=== PATIENT | female | born 1995 | race African-American/Black ===

== ENCOUNTER 2017-03-10 17:53 | Emergency (ER) | payer MEDICAID ==
[~2017-03-10] VITALS: Ht 157.5 cm; Wt 107.5 kg
[2017-03-10 18:30] VITALS: BP 124/85
[2017-03-10 19:27] LABS: ASPARTATE AMINO TRANSFERASE 27 U/L (15-37); BLOOD UREA NITROGEN 14 mg/dL (7-18)
[2017-03-10 20:11] LABS: PATH.CAST-FLAG NOT PRESENT; SPERM-FLAG NOT PRESENT; SRC-FLAG NOT PRESENT; XTAL-FLAG NOT PRESENT; YLC-FLAG NOT PRESENT
== END 2017-03-10 21:41 | disposition home or self-care (01) ==
LOC: ED 21:35
DX: N30.01 Acute cystitis with hematuria (principal); J02.8 Acute pharyngitis due to other specified organisms; N92.0 Excessive and frequent menstruation with regular cycle
CPT/HCPCS: 36415; 71020; 80053; 81001; 83690; 84703; 85025; 87086; 93005; 99285

== ENCOUNTER 2017-04-11 15:49 | Emergency (ER) | payer SELFPAY ==
[~2017-04-11] VITALS: Ht 157.5 cm; Wt 107.5 kg
[2017-04-11 15:50] VITALS: BP 142/90
[2017-04-11] MEDS ORDERED: KETOROLAC 30 MG/1 ML IM ONE (16:00)
[2017-04-11] MEDS ORDERED: KETOROLAC 30 MG/1 ML ONE (16:06)
[2017-04-11] MEDS ORDERED: METHOCARBAMOL 750 MG TABLET ONE (16:10)
[2017-04-11] MEDS ORDERED: METHOCARBAMOL 750 MG TABLET PO ONE (16:30)
[2017-04-11] MEDS ORDERED: MELO-190 PO (17:24)
== END 2017-04-11 17:32 | disposition home or self-care (01) ==
LOC: ED 17:00
DX: M54.16 Radiculopathy, lumbar region (principal); F17.200 Nicotine dependence, unspecified, uncomplicated
CPT/HCPCS: 72110; 73502; 96372; 99284; J1885

== ENCOUNTER 2017-05-05 14:59 | Emergency (ER) | payer MEDICAID ==
[~2017-05-05] VITALS: Ht 157.5 cm; Wt 100.0 kg
[~2017-05-05 14:59] MED LIST: MELO-190 PO
[2017-05-05 15:13] VITALS: BP 131/75
[2017-05-05] MEDS ORDERED: METHOCARBAMOL 750 MG TABLET PO ONE (15:30)
[2017-05-05] MEDS ORDERED: KETOROLAC 30 MG/1 ML IM ONE ×2 (15:30)
== END 2017-05-05 16:28 | disposition home or self-care (01) ==
LOC: ED 16:20
DX: M54.31 Sciatica, right side (principal); K59.00 Constipation, unspecified
CPT/HCPCS: 74020; 96372; 99284; J1885

== ENCOUNTER 2017-08-07 19:40 | Emergency (ER) | payer MEDICAID ==
[~2017-08-07] VITALS: Ht 162.6 cm; Wt 107.6 kg
[~2017-08-07 19:40] MED LIST changes: -MELO-190 PO; +MELO7.5T31 PO
[2017-08-07 21:06] LABS: HEMATOCRIT 37.1 % (34.6-47.8); HEMOGLOBIN 12.3 g/dL (11.7-16.4); WHITE BLOOD COUNT 8.9 x10^3/uL (3.4-10)
[2017-08-07 21:18] LABS: ASPARTATE AMINO TRANSFERASE 9 U/L (15-37); BLOOD UREA NITROGEN 12 mg/dL (7-18)
[2017-08-07 22:35] VITALS: BP 121/75
[2017-08-08] MEDS ORDERED: IBUP1TAB5 PO (23:35)
[2017-08-08] MEDS ORDERED: OXYC-302 PO (23:37)
[2017-08-08] MEDS ORDERED: DOCU-131 PO (23:37)
== END 2017-08-07 22:37 | disposition home or self-care (01) ==
LOC: ED 21:25
DX: O20.0 Threatened abortion (principal); M54.5 Low back pain; Z3A.01 Less than 8 weeks gestation of pregnancy; Z90.49 Acquired absence of other specified parts of digestive tract
CPT/HCPCS: 36415; 76856; 80053; 81003; 84702; 85025; 86901; 99285

== ENCOUNTER 2017-08-08 15:16 | Observation (INO) | payer MEDICAID ==
[~2017-08-08] VITALS: Ht 157.5 cm; Wt 106.1 kg
[2017-08-08] MEDS ORDERED: HYDROmorphone 1 MG/ML, 1ML ONE ×2 (15:56→16:40)
[2017-08-08] MEDS ORDERED: ONDANSETRON 2MG/ML, 2ML ONE ×3 (15:56→19:52)
[2017-08-08] MEDS ORDERED: SODIUM CHLORIDE 0.9% 1,000ML IVBOLUS ONE (16:00)
[2017-08-08] MEDS ORDERED: SODIUM CHLORIDE FLUSH 10ML SYR IVF ONE (16:00)
[2017-08-08] MEDS ORDERED: ONDANSETRON 2MG/ML, 2ML IVPush ONE (16:00)
[2017-08-08 16:01] LABS: HEMATOCRIT 41.9 % (34.6-47.8); HEMOGLOBIN 13.8 g/dL (11.7-16.4); WHITE BLOOD COUNT 9.3 x10^3/uL (3.4-10)
[2017-08-08] MEDS: HYDROmorphone 1 MG/ML, 1ML IVPush PRN ×2 (16:02→16:43)
[2017-08-08] MEDS ORDERED: DIPHENHYDRAMINE 50 MG/ML, 1ML ONE (17:07)
[2017-08-08] MEDS ORDERED: morphine SULFATE 10 MG/ML, 1ML ONE (17:10)
[2017-08-08] MEDS ORDERED: DIPHENHYDRAMINE 50 MG/ML, 1ML IVPush ONE (17:30)
[2017-08-08] MEDS ORDERED: FENTANYL PF 100 MCG/2ML IV ONE (19:00)
[2017-08-08] MEDS ORDERED: FENTANYL PF 100 MCG/2ML ONE ×5 (19:09→22:05)
[2017-08-08] MEDS: LACTATED RINGERS 1,000 ML IV SCH ×2 (19:19→23:50)
[2017-08-08] MEDS ORDERED: MIDAZOLAM 1 MG/ML, 2ML ONE ×2 (19:49→22:32)
[2017-08-08] MEDS ORDERED: GLYCOPYRROLATE 0.2MG/1ML, 5ML ONE (19:52)
[2017-08-08] MEDS ORDERED: PROPOFOL 10 MG/ML, 20ML ONE (19:52)
[2017-08-08] MEDS ORDERED: NEOSTIGMINE 1 MG/ML, 10ML ONE (19:52)
[2017-08-08] MEDS ORDERED: SUCCINYLCHOLINE 20 MG/ML, 10ML ONE (19:52)
[2017-08-08] MEDS ORDERED: DEXAMETHASONE 4 MG/ML, 1ML ONE (19:52)
[2017-08-08] MEDS ORDERED: CEFAZOLIN 1,000 MG ONE (19:52)
[2017-08-08] MEDS ORDERED: LIDOCAINE GEL 2%, 5ML ONE (19:53)
[2017-08-08] MEDS ORDERED: LIDOCAINE-MPF 2% ,5ML ONE ×2 (19:53→21:11)
[2017-08-08] MEDS ORDERED: EPINEPHRINE 1 MG/ML, 1ML ONE (19:57)
[2017-08-08] MEDS ORDERED: BUPIVACAINE/PF 0.25% ONE (19:57)
[2017-08-08] MEDS ORDERED: SILVER NITRATE STICK TP ONE ×2 (19:57→21:51)
[2017-08-08] MEDS ORDERED: MIDAZOLAM 1 MG/ML, 2ML IV PRN (20:00)
[2017-08-08] MEDS ORDERED: hydrALAzine 20 MG/ML, 1ML IV PRN (20:00)
[2017-08-08] MEDS ORDERED: HYDROmorphone 1 MG/ML, 1ML IV PRN (20:00)
[2017-08-08] MEDS ORDERED: DIAZEPAM 5 MG/ML, 2ML IVPush PRN (20:00)
[2017-08-08] MEDS ORDERED: ALBUTEROL/IPRATROPIUM 2.5MG/0.5MG, 3 ML NPPB PRN (20:00)
[2017-08-08] MEDS ORDERED: OXYcodone 5 MG/5 ML ORAL.SOL UDC PO PRN ×2 (20:00→22:30)
[2017-08-08] MEDS ORDERED: ACETAMINOPHEN 325 MG TABLET PO PRN (20:00)
[2017-08-08] MEDS ORDERED: LORazepam 2 MG/ML, 1ML IVPush PRN (20:00)
[2017-08-08] MEDS ORDERED: MEPERIDINE/PF 25MG/0.5ML IVPush PRN (20:00)
[2017-08-08] MEDS ORDERED: ONDANSETRON 2MG/ML, 2ML IVPush PRN ×2 (20:00→22:30)
[2017-08-08] MEDS ORDERED: LABETALOL 5MG/ML, 20ML IV PRN (20:00)
[2017-08-08] MEDS ORDERED: PROMETHAZINE 25 MG/ML, 1ML IV PRN (20:00)
[2017-08-08] MEDS ORDERED: ROCURONIUM 10 MG/ML ONE (20:05)
[2017-08-08] MEDS ORDERED: BUPIVACAINE/PF 0.25% INFIL ONE (20:23)
[2017-08-08] MEDS ORDERED: EPINEPHRINE 1 MG/ML, 1ML INFIL ONE (20:24)
[2017-08-08] MEDS ORDERED: OXYcodone 5 MG/5 ML ORAL.SOL UDC ONE (22:05)
[2017-08-08] MEDS ORDERED: KETOROLAC 30 MG/1 ML ONE (22:11)
[2017-08-08] MEDS: FENTANYL PF 100 MCG/2ML IV PRN ×2 (22:20→22:30)
[2017-08-08] MEDS ORDERED: KETOROLAC 30 MG/1 ML IVPush ONE (22:30)
[2017-08-08] MEDS ORDERED: MEPERIDINE/PF 25MG/0.5ML ONE (22:43)
[2017-08-08 23:35] VITALS: BP 107/67
[2017-08-08] MEDS ORDERED: IBUP1TAB5 PO (23:35)
[2017-08-08] MEDS ORDERED: OXYC-302 PO (23:37)
[2017-08-08] MEDS ORDERED: DOCU-131 PO (23:37)
[2017-08-08 23:50] VITALS: BP 117/78
[2017-08-09] MEDS ORDERED: DIPHENHYDRAMINE 25 MG CAPSULE PO PRN
[2017-08-09 00:05] VITALS: BP 107/69
[2017-08-09] MEDS: FENTANYL PF 100 MCG/2ML IVPush PRN ×3 (00:26→02:22)
[2017-08-09 00:30] VITALS: BP 121/76
[2017-08-09 00:55] VITALS: BP 116/76
[2017-08-09 01:20] VITALS: BP 115/76
[2017-08-09] MEDS: OXYcodone/APAP 5/325MG TABLET PO PRN ×2 (01:24→07:54)
[2017-08-09] MEDS: LACTATED RINGERS 1,000 ML IV SCH ×2 (03:30→06:01)
[2017-08-09 05:30] VITALS: BP 112/71
[2017-08-09 09:16] VITALS: BP 115/74
== END 2017-08-09 09:41 | disposition home or self-care (01) ==
LOC: ED 17:18 → 4NOR 23:22 → ED 23:40 → UNDOADMOB 23:48 → 4NOR 23:48
PROVIDERS: ADMIT Obstetrics & Gynecology; ATTEND Obstetrics & Gynecology
DX: O00.101 Right tubal pregnancy without intrauterine pregnancy (principal); N83.201 Unspecified ovarian cyst, right side; E66.01 Morbid (severe) obesity due to excess calories; F17.210 Nicotine dependence, cigarettes, uncomplicated
CPT/HCPCS: 36415; 59151; 76801; 84702; 85025; 86850; 86900; 88305; 88342; 96361; 96374; 96375; 96376; 99285; G0378; J0171; J0330; J1100; J1170; J1200; J1885; J2250; J2405; J2704; J2710; J3010; J3490; J7030; J7120; Q0163; J0690; G0461

== ENCOUNTER 2019-03-26 07:04 | Emergency (ER) | payer MEDICAID ==
[~2019-03-26] VITALS: Ht 157.5 cm; Wt 116.3 kg
[~2019-03-26 07:04] MED LIST changes: +DOCU-131 PO; +IBUP1TAB5 PO; +OXYC-302 PO
--- NOTE | 2019-03-26 07:33 | NUR ---
VEHICLE TECHNICIAN: PT TO ROOM FROM [facility], AMBULATORY WITH STEADY GAIT
[2019-03-26 08:23] LABS: BASOPHILS # (AUTO) 0.05 x10^3/uL (0-0.1); BASOPHILS % (AUTO) 1 % (0-1); EOSINOPHILS # (AUTO) 0.11 x10^3/uL (0-0.4); EOSINOPHILS % (AUTO) 1 % (1-7); LYMPHOCYTES # (AUTO) 1.84 x10^3/uL (1-3.4); LYMPHOCYTES % (AUTO) 22 % (22-44); MD NO; MEAN CORPUSCULAR HEMOGLOBIN 29.8 pg (27.0-34.8); MEAN CORPUSCULAR HGB CONC 33.2 g/dL (32.4-35.8); MEAN CORPUSCULAR VOLUME 89.6 fL (80-100); MEAN PLATELET VOLUME 7.3 fL (7.4-10.4); MONOCYTES # (AUTO) 0.49 x10^3/uL (0.2-0.8); MONOCYTES % (AUTO) 6 % (2-9); NEUTROPHILS # (AUTO) 6.03 x10^3/uL (1.8-6.8); NEUTROPHILS % (AUTO) 71 % (42-75); PLATELET COUNT 321 x10^3/uL (130-400); RED BLOOD COUNT 4.41 x10^6/uL (3.82-5.3); RED CELL DISTRIBUTION WIDTH 12.5 % (9.6-15.2)
[2019-03-26 08:34] LABS: ALANINE AMINOTRANSFERASE 26 U/L (12-78); ALBUMIN 3.4 g/dL (3.4-5.0); ANION GAP 6 mmol/L (5-15); CALCIUM 8.8 mg/dL (8.5-10.1); CHLORIDE 108 mmol/L (98-107); CREATININE 0.78 mg/dL (0.55-1.02)
[2019-03-26 08:39] LABS: ALKALINE PHOSPHATASE 88 U/L (45-117); BILIRUBIN,TOTAL 0.3 mg/dL (0.2-1.0); TOTAL PROTEIN 7.8 g/dL (6.4-8.2)
[2019-03-26 08:40] LABS: MICROSCOPIC INDICATED
[2019-03-26 08:41] LABS: CULTURE INDICATED? YES
--- NOTE | 2019-03-26 09:21 | NUR ---
PT C/O BILAT JAW PAIN, BILAT LOW ABD QUAD PAIN, AND LOWER BACK PAIN. VSS. NO ACUTE SIGNS OF DISTRESS.
[2019-03-26] MEDS ORDERED: OMNIPAQUE 350 MG/ML, 100ML BOTTLE ONE (09:49)
[2019-03-26 11:13] VITALS: BP 111/72
--- NOTE | 2019-03-26 11:20 | NUR ---
ALL DISCHARGE INSTRUCTIONS EXPLAINED, PT VERBALIZED UNDERSTANDING. IV REMOVED WITH TIP INTACT. PT DISCHARGED IN STABLE CONDITION, STEADY ON FEET.
== END 2019-03-26 11:22 | disposition home or self-care (01) ==
LOC: ED 08:23
DX: S39.012A Strain of muscle, fascia and tendon of lower back, initial encounter (principal); S33.5XXA Sprain of ligaments of lumbar spine, initial encounter; N83.292 Other ovarian cyst, left side; N83.291 Other ovarian cyst, right side; Z90.49 Acquired absence of other specified parts of digestive tract; X58.XXXA Exposure to other specified factors, initial encounter; Y93.89 Activity, other specified; Y92.89 Other specified places as the place of occurrence of the external cause; Y99.8 Other external cause status
CPT/HCPCS: 36415; 74177; 76830; 80053; 81001; 84703; 85025; 87086; 99284; Q9967

== ENCOUNTER 2019-08-12 08:38 | Emergency (ER) | payer MEDICAID ==
[~2019-08-12] VITALS: Ht 157.5 cm; Wt 118.0 kg
--- NOTE | 2019-08-12 09:32 | NUR ---
US AT BEDSIDE
[2019-08-12 10:00] LABS: BASOPHILS # (AUTO) 0.04 x10^3/uL (0-0.1); BASOPHILS % (AUTO) 1 % (0-1); EOSINOPHILS # (AUTO) 0.14 x10^3/uL (0-0.4); EOSINOPHILS % (AUTO) 2 % (1-7); LYMPHOCYTES # (AUTO) 1.77 x10^3/uL (1-3.4); LYMPHOCYTES % (AUTO) 20 % (22-44); MD NO; MEAN CORPUSCULAR HEMOGLOBIN 30.1 pg (27.0-34.8); MEAN CORPUSCULAR HGB CONC 33.4 g/dL (32.4-35.8); MEAN CORPUSCULAR VOLUME 90.3 fL (80-100); MEAN PLATELET VOLUME 7.7 fL (7.4-10.4); MONOCYTES % (AUTO) 6 % (2-9); NEUTROPHILS # (AUTO) 6.28 x10^3/uL (1.8-6.8); NEUTROPHILS % (AUTO) 72 % (42-75); PLATELET COUNT 307 x10^3/uL (130-400); RED BLOOD COUNT 4.57 x10^6/uL (3.82-5.3)
[2019-08-12 10:12] LABS: ALANINE AMINOTRANSFERASE 28 U/L (12-78); ALBUMIN 3.3 g/dL (3.4-5.0); ANION GAP 5 mmol/L (5-15); CALCIUM 8.4 mg/dL (8.5-10.1); CHLORIDE 109 mmol/L (98-107); CREATININE 0.76 mg/dL (0.55-1.02)
[2019-08-12 10:14] LABS: ALKALINE PHOSPHATASE 75 U/L (45-117); BILIRUBIN,TOTAL 0.4 mg/dL (0.2-1.0); TOTAL PROTEIN 7.2 g/dL (6.4-8.2)
--- NOTE | 2019-08-12 10:24 | NUR ---
pt resting in [facility], call light within reach. awaiting lab and us results
[2019-08-12 10:29] LABS: MICROSCOPIC INDICATED
[2019-08-12 10:35] LABS: CULTURE INDICATED? YES
[2019-08-12 11:47] VITALS: BP 122/63
== END 2019-08-12 11:49 | disposition home or self-care (01) ==
LOC: ED 10:37
DX: M54.42 Lumbago with sciatica, left side (principal); R11.0 Nausea; F17.200 Nicotine dependence, unspecified, uncomplicated; Z90.49 Acquired absence of other specified parts of digestive tract
CPT/HCPCS: 36415; 76770; 80053; 81001; 83690; 85025; 87086; 99284

== ENCOUNTER 2019-10-31 09:46 | Emergency (ER) | payer MEDICAID ==
[~2019-10-31] VITALS: Ht 157.5 cm; Wt 117.3 kg
[2019-10-31 10:28] VITALS: BP 128/92
[2019-10-31] MEDS ORDERED: KETOROLAC 30 MG/1 ML ONE (11:08)
[2019-10-31] MEDS ORDERED: KETOROLAC 60 MG/2 ML IM ONE (12:00)
== END 2019-10-31 11:46 ==
LOC: ED 11:00
DX: S39.012A Strain of muscle, fascia and tendon of lower back, initial encounter (principal); F17.200 Nicotine dependence, unspecified, uncomplicated; Z90.49 Acquired absence of other specified parts of digestive tract; W18.30XA Fall on same level, unspecified, initial encounter; Y93.89 Activity, other specified; Y92.89 Other specified places as the place of occurrence of the external cause; Y99.8 Other external cause status
CPT/HCPCS: 96372; 99283; J1885

== ENCOUNTER 2019-11-25 18:17 | Emergency (ER) | payer MEDICAID ==
[~2019-11-25] VITALS: Ht 157.5 cm; Wt 117.0 kg
[2019-11-25 18:20] VITALS: BP 144/92
--- NOTE | 2019-11-25 18:32 | NUR ---
ERP AT NOW.
[2019-11-25] MEDS ORDERED: KETOROLAC 60 MG/2 ML ONE (18:58)
[2019-11-25] MEDS ORDERED: KETOROLAC 30 MG/1 ML IM ONE (19:00)
--- NOTE | 2019-11-25 19:04 | NUR ---
PT MEDICATED PER ORDERS, UNDERSTANDS POC.
--- NOTE | 2019-11-25 19:16 | NUR ---
PT STATES SHE DOESN'T FEEL ANY PAIN RELIEF FROM TORADOL INJECTION, BUT STATES SHE'S READY TO BE DISCHARGED. D/C INSTRUCTIONS & MEDS RV'WD WITH PT, INSTRUCTED HER TO RETURN FOR ANY WORSENING SYMPTOMS. PT AMBULATED OUT WITHOUT DIFFICULTY.
== END 2019-11-25 19:19 | disposition home or self-care (01) ==
LOC: ED 18:53
DX: R07.89 Other chest pain (principal); Z90.49 Acquired absence of other specified parts of digestive tract
CPT/HCPCS: 93005; 96372; 99283; J1885

== ENCOUNTER 2020-01-01 06:06 | Emergency (ER) | payer MEDICAID ==
[~2020-01-01] VITALS: Ht 157.5 cm; Wt 120.4 kg
[2020-01-01 06:10] VITALS: BP 160/102
--- NOTE | 2020-01-01 06:26 | NUR ---
Pt alert and resting on gurney. Pt reports a skin tear to her right middle finger nail bed on Tuesday. Pt reports putting neosporin on it. Pt reports it has continued to be swollen and and painful to move. Swelling noted. Pus pocket noted to right side of nail bed. Call light in place.
--- NOTE | 2020-01-01 06:57 | NUR ---
RECEIVED REPOPT FROM JOAO GUERRERO, PLAN OF CARE DISCUSSED
[2020-01-01] MEDS ORDERED: LIDOCAINE-MPF 1%, 5ML INFIL ONE (07:30)
--- NOTE | 2020-01-01 07:39 | NUR ---
PT RESTING, VERBALIZED NO NEEDS AT THIS TIME
[2020-01-01] MEDS ORDERED: LIDOCAINE-MPF 1%, 5ML ONE (07:43)
--- NOTE | 2020-01-01 08:28 | NUR ---
Patient/Caregiver given discharge instructions and they have confirmed that they understand the instructions. Patient ambulatory with steady gait.
== END 2020-01-01 08:29 | disposition home or self-care (01) ==
LOC: ED 08:22
DX: L03.011 Cellulitis of right finger (principal); F17.200 Nicotine dependence, unspecified, uncomplicated; Z90.49 Acquired absence of other specified parts of digestive tract
CPT/HCPCS: 10080; 99283